=== PATIENT | female | born 1990 | race American Indian/Alaskan Native ===

== ENCOUNTER 2019-08-03 14:14 | Emergency (ER) | payer MEDICAID ==
[2019-08-03] MEDS ORDERED: KETOROLAC 30 MG/1 ML INJ IV ONE (14:46)
[2019-08-03] MEDS ORDERED: TETANUS,DIPH,PERTUSS(ACELL) VACCINE 0.5 ML SYRINGE IM ONE (14:46)
[2019-08-03] MEDS ORDERED: BACITRACIN ZINC OINT 28.4 GM TP STA (14:46)
[2019-08-03] MEDS ORDERED: MORPHINE 4 MG/1 ML INJ IV ONE (14:46)
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
[2019-08-03 15:00] VITALS: BP 104/67
== END 2019-08-03 16:00 | disposition home or self-care (01) ==
LOC: ED 14:14
DX: T22.212A Burn of second degree of left forearm, initial encounter (principal); T24.112A Burn of first degree of left thigh, initial encounter; Z79.899 Other long term (current) drug therapy; X08.8XXA Exposure to other specified smoke, fire and flames, initial encounter; Y93.89 Activity, other specified; Y92.89 Other specified places as the place of occurrence of the external cause; Y99.8 Other external cause status
CPT/HCPCS: 16000; 90471; 90715; 96374; 96375; 99283; J1885; J2270